=== PATIENT | male | born 1955 | race Caucasian/White ===

== ENCOUNTER 2017-03-15 21:55 | Inpatient (IN) | payer OTHER ==
[~2017-03-15] VITALS: Ht 177.8 cm; Wt 92.3 kg
[2017-03-15] MEDS ORDERED: NS 1,000 ML IV SCH (22:04)
[2017-03-15] MEDS: METOPROLOL 5 MG/5 ML VIAL IV SCH ×6 (22:23→23:06)
[2017-03-15 22:24] LABS: BASO % 0.5 % (0.0-1.0); EOS % 0.3 % (0.0-3.0); LARGE UNSTAINED CELL # 0.1 K/mm3 (0.0-0.4); LYMPH # 1.5 K/mm3 (1.5-4.5); LYMPH % 14.3 % (24.0-44.0); MEAN CORPUSCULAR HEMOGLOBIN 31.8 pg (27.0-33.0); MEAN CORPUSCULAR HGB CONC 31.7 g/dl (32.0-36.5); MEAN CORPUSCULAR VOLUME 100.3 fl (80.0-96.0); MONO # 0.6 K/mm3 (0.0-0.8); MONO % 6.2 % (0.0-5.0); NEUTROPHILS # 7.6 K/mm3 (1.8-7.7); NEUTROPHILS % 77.6 % (36.0-66.0); PLATELET COUNT, AUTOMATED 229 k/mm3 (150-450); RED CELL DISTRIBUTION WIDTH 13.4 % (11.5-14.5); WHITE BLOOD COUNT 9.8 K/mm3 (4.0-10.0)
[2017-03-15 22:31] LABS: INR 1.23
[2017-03-15 22:50] LABS: ALBUMIN 3.6 GM/DL (3.2-5.2); ALKALINE PHOSPHATASE 182 U/L (45-117); ALT/SGPT 84 U/L (12-78); ANION GAP 19 MEQ/L (8-16); AST/SGOT 109 U/L (15-37); BILIRUBIN,DIRECT 0.7 MG/DL (0.0-0.2); BILIRUBIN,TOTAL 1.8 MG/DL (0.2-1.0); BLOOD UREA NITROGEN 13 MG/DL (7-18); CALCIUM LEVEL 8.7 MG/DL (8.8-10.2); CARBON DIOXIDE LEVEL 17 MEQ/L (21-32); CHLORIDE LEVEL 106 MEQ/L (98-107); CREATININE FOR GFR 1.01 MG/DL (0.70-1.30); FREE T4 1.26 NG/DL (0.76-1.46); GLOMERULAR FILTRATION RATE > 60.0 (>49); GLUCOSE, FASTING 144 MG/DL (80-110); POTASSIUM SERUM 3.5 MEQ/L (3.5-5.1); SODIUM LEVEL 142 MEQ/L (136-145); TOTAL PROTEIN 7.2 GM/DL (6.4-8.2)
[2017-03-15] MEDS ORDERED: FUROSEMIDE 40 MG/4 ML VIAL (J1940) IV ONE (23:00)
[2017-03-15] MEDS ORDERED: POTASSIUM CHLORIDE 10 MEQ SR TABLET PO ONE (23:15)
[2017-03-15] MEDS ORDERED: ISOVUE-370 76% 100ML VIAL (Q9967) As Ordered ONE (23:17)
[2017-03-15 23:38] LABS: ABG BASE EXCESS -3.4 (-2.0-2.0); ABG HCO3 18.6 MEQ/L (22.0-26.0); ABG PARTIAL PRESSURE CO2 26.5 mmHg (35.0-45.0); ABG PARTIAL PRESSURE O2 69.7 mmHg (75.0-100.0); ABG STANDARD HCO3 21.6 MEQ/L (22.0-26.0); ABG TOTAL CO2 19.5 MEQ/L (23.0-31.0); ABG pH (ARTERIAL) 7.465 UNITS (7.350-7.450)
[2017-03-15] MEDS ORDERED: diltiaZEM 125 MG in NS 100 ML IV SCH (23:45)
[2017-03-16] VITALS (14 sets, daily range): BP systolic 111–151; BP diastolic 71–115
[2017-03-16] MEDS ORDERED: AMIODARONE HCL 150 MG in APPROPRIATE DILUENT 1 EA IV STA (00:05)
--- NOTE | 2017-03-16 00:10 | REPUSA ---
CLINICAL HISTORY: Dyspnea, exclude PE. TECHNIQUE: Multiple incremental axial, coronal and oblique images are obtained from the thoracic inle t to the upper abdomen. Intravenous contrast material was administered as per pulmonary embolism prot ocol. COMMENTS: There is excellent opacification of pulmonary arterial system without evidence for pulmonary embolism . Aorta is of normal caliber without evidence for dissection or aneurysm. Bilateral hilar adenopathy is suspected. There is no bulky mediastinal lymphadenopathy. The heart is enlarged. Pulmonary venous congestive ch anges present. Reflux of contrast into the IVC and hepatic veins compatible with right heart failure . There are large bilateral pleural effusions noted. The right right lower lobe, left lower lobe and right upper lobe consolidation is present compatible with pneumonia. Images of the upper abdomen demonstrate perihepatic ascites. The bony structures are free of lytic or blastic lesions. Multilevel degenerative changes are seen in volving the visualized thoracolumbar spine. Scattered calcifications are seen involving the aorta and major branches compatible with atherosclero sis. IMPRESSION: No evidence for pulmonary embolism. Pulmonary venous congestive changes present. Reflux of contrast into the IVC and hepatic veins mely tible with right heart failure. There are large bilateral pleural effusions noted. The right right lower lobe, left lower lobe and right upper lobe consolidations compatible with pneu monia. Images of the upper abdomen demonstrate perihepatic ascites. Thank you for your kind referral of this patient.
[2017-03-16] MEDS ORDERED: diltiaZEM 125 MG in NS 100 ML IV SCH ×2 (00:15→09:36)
[2017-03-16] MEDS ORDERED: cefTRIAXone SOD 2 GM in D5W MINI-BAG PLUS 50 ML IV ONE (00:15)
[2017-03-16] MEDS ORDERED: AZITHROMYCIN INJ 500 MG, VIAL MATE ADAPTER 1 EACH in D5W 250 ML IV ONE (00:15)
[2017-03-16] MEDS: diltiaZEM 125 MG in NS 100 ML IV SCH ×4 (01:00→16:20)
[2017-03-16] MEDS ORDERED: FUROSEMIDE 100 MG/10 ML VIAL (J1940) IV ONE (01:15)
[2017-03-16] MEDS ORDERED: DIGOXIN INJ 0.5 MG/2 ML AMP (J1160) IV STA (02:16)
--- NOTE | 2017-03-16 02:33 | HPE ---
DATE OF ADMISSION: 03/16/2017 PRIMARY CARE PHYSICIAN: None. HOSPITALIST ATTENDING: Bam Solares MD. CHIEF COMPLAINT: "I couldn't catch my breath." HISTORY OF PRESENTING ILLNESS: 61-year-old male with no past medical history, visiting the area from the [facility], presents to the emergency room with worsening chest congestion, dry cough, and shortness of breath for the past 1 week, worsened in the past 2 days noticed while walking around at [place] with some wheezing, without relief after using his 's inhaler. He denies palpitations, lightheadedness, nearsyncope or dizziness, vomiting, nausea, abdominal pain, bright red blood per rectum, melena, hematemesis, lightheadedness or dizziness. He has not noticed any weight changes, pnd, orthopnea, but with lower extremity edema. In the emergency room (ER), he was found to have atrial fibrillation with rapid ventricular rate of 154. Chest x-ray showing large bilateral effusions compatible with congestive heart failure. Hospitalist service was called for admission for atrial fibrillation with rapid ventricular rate (RVR), new onset of congestive heart failure. PAST MEDICAL HISTORY: None. PAST SURGICAL HISTORY: None. ALLERGIES: No known drug allergies. SOCIAL HISTORY: Drinks alcohol 3-4 times a day with liquor and beer. Last drink was yesterday. One caffeinated beverage a day with coffee. No cigarette use. FULL CODE. Health care proxy is his . Phone number is [phone]. FAMILY HISTORY: Mother with defibrillator, congestive heart failure, at the age of 81. Mother age 46 with aneurysm. REVIEW OF SYSTEMS: Per history of present illness (HPI), 12-point system otherwise negative. PHYSICAL EXAMINATION: Temperature 97.7, pulse 154, respiratory rate 16, blood pressure 151/98, 91% on 3 liters nasal cannula. Generally, patient is awake, alert, oriented times three, able to provide a history. Anicteric sclerae. No jaundice. Pupils are equally round and reactive to light and accommodation. Extraocular muscles are intact. Dry mucous membranes. Positive jugular venous distention. No thyromegaly or cervical lymphadenopathy. Lungs are diminished with rales bilaterally. Heart: S1, S2, irregularly irregular. No murmurs, rubs or gallops. Abdomen is soft, nontender, nondistended. Extremities: 1+ pitting edema. White count 9.8, hemoglobin 14, hematocrit 44, platelet count 229, 77% neutrophils. Sodium 142, potassium 3.5, chloride 106, bicarbonate 17, BUN 13, creatinine 1.01 , glucose 144, lactic acid 4.8, calcium 8.7, total bilirubin 1.8, direct bilirubin 0.7, AST 109, ALT 84, alkaline phosphatase 182, total CK 202, MB fraction 5.2, troponin 0.05, C-reactive protein 1.11, BNP of 753. CT of the chest shows no evidence of dissection, aneurysm. Bilateral hilar adenopathy is suspected. No bulky mediastinal lymphadenopathy. Heart is enlarged. Pulmonary venous congestive changes are present compatible with right heart failure. Large bilateral pleural effusions. Right lower lobe, left lower lobe and right upper lobe consolidation is present compatible with pneumonia. Atherosclerosis along the aorta and major branches. ASSESSMENT AND PLAN: This is a 61-year-old male with no prior medical history presents to the emergency room with 1-week complaint of congestion, cough worsened in the past 2 days with worsening shortness of breath, found to have atrial fibrillation with rapid ventricular response (RVR), new onset congestive heart failure, as well as right lower lobe consolidation on CT chest compatible with pneumonia. Patient will be admitted as an inpatient for two midnights and assigned to Dr. Bam Solares. CURRENT ISSUES: 1. Atrial fibrillation with rapid ventricular response, uncontrolled. Most likely brought on by an acute infectious process. Therefore, will treat underlying condition with intravenous (IV) antibiotics. He will be given intravenous diltiazem drip at 10 mg/h. No significant improvement and uncontrolled heart rate, will give amiodarone 150 mg times one, as well as digoxin, titrate to 15 mg diltiazem as a drip if no significant improvement. Thyroid-stimulating hormone (TSH) is within normal limits. For CVA prophylaxis, will start Xarelto, 2D echocardiogram in the morning. 2. Congestive heart failure, new onset, unknown ejection fraction. Most likely brought on by atrial fibrillation with rapid ventricular response and recent acute pneumonia in the right lower lobe. Patient will be given intravenous Lasix every 6 hours, strict intake and output (I and O), daily weights, fluid restriction, 2D echocardiogram to determine if this is systolic or diastolic dysfunction. Cycle cardiac markers every 6 hours to rule out acute coronary syndrome. Troponins are negative so far. EKG is unremarkable for acute ischemia aside from atrial fibrillation with RVR. Due to history of chronic alcohol use, concerning also for alcohol-related dilated cardiomyopathy. Await Echo report, and if ejection fraction <40%, will need cardiology consult, and workup for ischemia either with stress test or coronary angiogram in the near future. 3. Right lower lobe pneumonia, community acquired. Patient will be continued on ceftriaxone, azithromycin. Obtain blood cultures. Urine legionella, urine streptococcal antigen. Supportive care with nebulizer treatments with Xopenex. Sputum culture if cough becomes productive. 4. Alcohol Abuse. Patient drinks 4-5 drinks daily. Delirium tremens (DT) precautions. Serax as needed, multivitamin, thiamine and folate. 5. Deep venous thrombosis (DVT) prophylaxis. Currently on Eliquis, but will provide compression stockings. 6. CODE STATUS: FULL CODE. Patient will be assigned to Dr. Bam Solares at 7 a.m. [facility]
[2017-03-16] MEDS ORDERED: MOM 30ML SUSPENSION UDC PO PRN (05:15)
[2017-03-16] MEDS ORDERED: SENOKOT S TAB PO PRN (05:15)
[2017-03-16] MEDS ORDERED: ACETAMINOPHEN TAB 650MG DOSE (2X325MG) PO PRN (05:15)
[2017-03-16] MEDS ORDERED: LEVALBUTEROL 1.25 MG/0.5 ML CONCENTRATE NEB INH PRN (05:15)
[2017-03-16] MEDS: FUROSEMIDE 40 MG/4 ML VIAL (J1940) IV SCH ×4 (05:17→22:20)
[2017-03-16 05:33] LABS: BASO % 0.1 % (0.0-1.0); EOS % 0.2 % (0.0-3.0); LARGE UNSTAINED CELL # 0.1 K/mm3 (0.0-0.4); LARGE UNSTAINED CELL % 1.7 % (0.0-4.0); LYMPH # 0.8 K/mm3 (1.5-4.5); LYMPH % 12.1 % (24.0-44.0); MEAN CORPUSCULAR HEMOGLOBIN 32.5 pg (27.0-33.0); MEAN CORPUSCULAR HGB CONC 34.2 g/dl (32.0-36.5); MONO # 0.5 K/mm3 (0.0-0.8); MONO % 7.3 % (0.0-5.0); NEUTROPHILS # 5.2 K/mm3 (1.8-7.7); NEUTROPHILS % 78.6 % (36.0-66.0); PLATELET COUNT, AUTOMATED 199 k/mm3 (150-450); WHITE BLOOD COUNT 6.6 K/mm3 (4.0-10.0)
[2017-03-16 05:41] LABS: MEAN CORPUSCULAR VOLUME 94.9 fl (80.0-96.0)
[2017-03-16 06:13] LABS: ALBUMIN 3.6 GM/DL (3.2-5.2); ALBUMIN/GLOBULIN RATIO 1.03 (1.00-1.93); ALKALINE PHOSPHATASE 164 U/L (45-117); ALT/SGPT 161 U/L (12-78); ANION GAP 13 MEQ/L (8-16); AST/SGOT 395 U/L (15-37); BILIRUBIN,DIRECT 0.7 MG/DL (0.0-0.2); BILIRUBIN,TOTAL 1.7 MG/DL (0.2-1.0); BLOOD UREA NITROGEN 14 MG/DL (7-18); CALCIUM LEVEL 8.2 MG/DL (8.8-10.2); CARBON DIOXIDE LEVEL 24 MEQ/L (21-32); CHLORIDE LEVEL 104 MEQ/L (98-107); CHOLESTEROL LEVEL 160 MG/DL (<200); CREATININE FOR GFR 0.93 MG/DL (0.70-1.30); GLOMERULAR FILTRATION RATE > 60.0 (>49); GLUCOSE, FASTING 138 MG/DL (80-110); MAGNESIUM LEVEL 1.1 MG/DL (1.8-2.4); POTASSIUM SERUM 3.5 MEQ/L (3.5-5.1); SODIUM LEVEL 141 MEQ/L (136-145); TOTAL PROTEIN 7.1 GM/DL (6.4-8.2); TRIGLYCERIDES LEVEL 73 MG/DL (<150)
[2017-03-16] MEDS ORDERED: POTASSIUM CHLORIDE 10 MEQ SR TABLET PO ONE (07:15)
--- NOTE | 2017-03-16 07:42 | REP ---
Portable chest, single AP view, patient sitting: There is cardiomegaly and there are mild interstitial infiltrates. The martha, mediastinum, and bony thorax are unremarkable Signed by Blair Mota MD 03/16/2017 07:34 A
--- NOTE | 2017-03-16 07:43 | REP ---
Portable chest, 06:51 a.m., single AP view, patient sitting: Comparison is from 03/15 2017. Cardiomegaly persists. Interstitial infiltrates have a slightly improved. The martha, mediastinum, and bony thorax are unremarkable. On the CT performed on 03/15/2017. There are bilateral pleural effusions. These are not visible on this portable AP chest. Signed by Blair Mota MD 03/16/2017 07:35 A
[2017-03-16] MEDS: MAG SULF IV SCH ×3 (07:49→10:00)
[2017-03-16] MEDS: DILUENT IV SCH ×3 (07:49→10:00)
[2017-03-16] MEDS ORDERED: DIGOXIN INJ 0.5 MG/2 ML AMP (J1160) IV ONE (08:15)
[2017-03-16] MEDS: MULTIVITAMINS/MINERALS THERAP 1 TAB PO SCH (08:33)
[2017-03-16] MEDS: FOLIC ACID 1 MG TAB PO SCH (08:33)
[2017-03-16] MEDS: THIAMINE 100 MG TAB PO SCH (08:34)
--- NOTE | 2017-03-16 17:04 | REP ---
Right upper quadrant sonography: History: Elevated liver function studies. Findings: Scanning through the right upper quadrant of the abdomen demonstrates incidental note of a right pleural effusion. Scanning over the gallbladder demonstrates a markedly thickened gallbladder wall measuring up to 11 mm. No tenderness to scanning over the gallbladder was elicited. No pericholecystic fluid is seen. No stone is appreciated. Common bile duct is normal measuring 0.5 cm in greatest diameter. Pancreas is obscured by abdominal gas. No focal liver lesion is seen. There is no evidence of ascites or right renal abnormality. The right kidney measures 11.7 x 4.3 x 6.7 cm. Impression: Moderate gallbladder wall thickening. No stones or tenderness seen. Right pleural effusion noted. Otherwise negative. Signed by Donald Yao MD 03/17/2017 09:11 A
[2017-03-16] MEDS: RIVAROXABAN 20 MG TAB (XARELTO) PO SCH (18:00)
[2017-03-16] MEDS: OXAZEPAM 10 MG CAP PO PRN (20:03)
--- NOTE | 2017-03-16 20:36 | ECHO ---
DATE OF PROCEDURE: 03/16/2017 REFERRING PHYSICIAN: Dr. Thien Guzman HEIGHT: 178 cm WEIGHT: 100 kg DIMENSIONS: IVS: 1.3 LV: 4.6 LVPW: 1.3 LA: 4.4 Aorta: 4.0 FINDINGS: The study is of acceptable technical quality. The patient is in atrial fibrillation with rapid ventricular rate ranging from 100 beats per minute to 140 beats per minute. Left ventricle is of normal size and grossly normal contractility. I estimate ejection fraction (EF) around 60-65%. Mild left ventricular hypertrophy (LVH) is noted. Right ventricle does not appear dilated. Both atria are severely enlarged. Aortic valve is sclerotic, but seems to have preserved mobility. There are also degenerative abnormalities of mitral valve, but mobility of leaflets is preserved. Tricuspid valve appears normal. Pulmonic valve was not well seen. Trace pericardial effusion is noted. Inferior vena cava is dilated and has only mild collapse with respiration indicative of very high central venous pressure. Aortic root appears mildly dilated at 4.0 cm. Aortic arch was not well seen. Abdominal aorta also was not well seen. Doppler interrogation reveals no aortic stenosis or insufficiency. There is mild mitral and tricuspid insufficiency. Calculated pulmonary artery pressure is at least in mid to high 40s, which would correspond to moderate pulmonary hypertension. Evaluation of diastolic function is inconclusive due to underlying atrial fibrillation. CONCLUSIONS: 1. Study is of acceptable technical quality. 2. Normal LV size with mild LVH and preserved left ventricle (LV) systolic function. 3. Normal right ventricle (RV) size. 4. Severe biatrial enlargement. 5. Aortic sclerosis, but no significant stenosis. 6. Mild mitral and tricuspid insufficiency. 7. Very high central venous pressure and at least moderate pulmonary hypertension. 8. Trace pericardial effusion. 9. Mildly dilated aortic root (4.0 cm). COMMENT Subacute bacterial endocarditis (SBE) prophylaxis is not recommended. Severe biatrial enlargement indicates long duration of atrial fibrillation.
--- NOTE | 2017-03-16 20:43 | ECGEPIP ---
Stationary ECG Study [facility] Test Date: 2017-03-15 Pat Name: ALBERTO HOOD Department: Room: [place] [address] Gender: M Incident Handler: : 1955 Requested By: ALEX OWENS Order Number: [id number] Reading MD: Roopa De La Torre Measurements Intervals [place] Rate: 145 P: [place]: 0 QRS: 24 QRSD: 106 T: 0 QT: 314 QTc: 489 Interpretive Statements ATRIAL FIBRILLATION WITH RAPID VENTRICULAR RESPONSE WITH ABERRANT CONDUCTION OR VENTRICULAR PREMATURE COMPLEXES MODERATE T-WAVE ABNORMALITY, CONSIDER ISCHEMIA NO PRIOR Electronically Signed On 03-16-2017 20:43:02 EDT by Roopa De La Torre
--- NOTE | 2017-03-16 20:45 | ECGEPIP ---
Stationary ECG Study [facility] Test Date: 2017-03-16 Pat Name: ALBERTO HOOD Department: Room: [place] [address] Gender: M Broadcast Technician: CHERYLE : 1955 Requested By: ULICES Brown Order Number: [id number] Reading MD: Roopa De La Torre Measurements Intervals [place] Rate: 127 P: [place]: 0 QRS: -1 QRSD: 119 T: 215 QT: 317 QTc: 461 Interpretive Statements ATRIAL FIBRILLATION WITH RAPID VENTRICULAR RESPONSE WITH ABERRANT CONDUCTION OR VENTRICULAR PREMATURE COMPLEXES MODERATE INTRAVENTRICULAR CONDUCTION DELAY ST DEVIATION AND MODERATE T-WAVE ABNORMALITY, CONSIDER ANTEROLATERAL ISCHEMIA STT ABNORMALITIES ARE MORE APPARENT COMPARED TO 03/15/17 Electronically Signed On 03-16-2017 20:44:44 EDT by Roopa De La Torre
[2017-03-17] VITALS (7 sets, daily range): BP systolic 108–125; BP diastolic 64–87
[2017-03-17] MEDS: cefTRIAXone SOD 2 GM in D5W MINI-BAG PLUS 50 ML IV SCH ×2 (00:01→23:22)
[2017-03-17] MEDS: diltiaZEM 125 MG in NS 100 ML IV SCH ×3 (00:54→16:44)
[2017-03-17] MEDS: AZITHROMYCIN INJ 500 MG, VIAL MATE ADAPTER 1 EACH in D5W 250 ML IV SCH (00:54)
[2017-03-17] MEDS: FUROSEMIDE 40 MG/4 ML VIAL (J1940) IV SCH ×4 (04:14→23:25)
[2017-03-17] MEDS: OXAZEPAM 10 MG CAP PO PRN ×3 (04:58→19:30)
[2017-03-17 05:27] LABS: BASO % 0.3 % (0.0-1.0); EOS # 0.1 K/mm3 (0.0-0.50); EOS % 0.7 % (0.0-3.0); LARGE UNSTAINED CELL # 0.2 K/mm3 (0.0-0.4); LARGE UNSTAINED CELL % 2.1 % (0.0-4.0); LYMPH # 1.7 K/mm3 (1.5-4.5); LYMPH % 18.3 % (24.0-44.0); MEAN CORPUSCULAR HEMOGLOBIN 32.2 pg (27.0-33.0); MEAN CORPUSCULAR HGB CONC 32.9 g/dl (32.0-36.5); MEAN CORPUSCULAR VOLUME 97.9 fl (80.0-96.0); MONO # 0.7 K/mm3 (0.0-0.8); MONO % 7.9 % (0.0-5.0); NEUTROPHILS # 5.9 K/mm3 (1.8-7.7); NEUTROPHILS % 70.6 % (36.0-66.0); PLATELET COUNT, AUTOMATED 189 k/mm3 (150-450); RED CELL DISTRIBUTION WIDTH 13.2 % (11.5-14.5); WHITE BLOOD COUNT 8.3 K/mm3 (4.0-10.0)
[2017-03-17 06:00] LABS: ALBUMIN/GLOBULIN RATIO 0.86 (1.00-1.93); ALKALINE PHOSPHATASE 127 U/L (45-117); ALT/SGPT 119 U/L (12-78); AST/SGOT 185 U/L (15-37); BILIRUBIN,DIRECT 0.5 MG/DL (0.0-0.2); BILIRUBIN,TOTAL 1.3 MG/DL (0.2-1.0); BLOOD UREA NITROGEN 15 MG/DL (7-18); CALCIUM LEVEL 7.6 MG/DL (8.8-10.2); CARBON DIOXIDE LEVEL 30 MEQ/L (21-32); CHLORIDE LEVEL 99 MEQ/L (98-107); CREATININE FOR GFR 0.83 MG/DL (0.70-1.30); DIGOXIN LEVEL 0.6 NG/ML (0.5-2.0); GLOMERULAR FILTRATION RATE > 60.0 (>49); GLUCOSE, FASTING 93 MG/DL (80-110); MAGNESIUM LEVEL 1.5 MG/DL (1.8-2.4); TOTAL PROTEIN 6.5 GM/DL (6.4-8.2)
[2017-03-17 06:11] LABS: ANION GAP 9 MEQ/L (8-16); SODIUM LEVEL 138 MEQ/L (136-145)
[2017-03-17 06:12] LABS: POTASSIUM SERUM 2.8 MEQ/L (3.5-5.1)
[2017-03-17] MEDS ORDERED: POTASSIUM CHLORIDE 10 MEQ SR TABLET PO ONE ×2 (06:15→09:00)
[2017-03-17] MEDS: KCL 10MEQ IN 100ML SWI (KRUN) 10 MEQ in APPROPRIATE DILUENT 1 EA IV SCH ×4 (09:07→10:28)
[2017-03-17] MEDS: THIAMINE 100 MG TAB PO SCH (09:08)
[2017-03-17] MEDS: MULTIVITAMINS/MINERALS THERAP 1 TAB PO SCH (09:08)
[2017-03-17] MEDS: FOLIC ACID 1 MG TAB PO SCH (09:08)
[2017-03-17] MEDS: MAG SULF 1GM/100ML (MAG RUN) 1 GM in APPROPRIATE DILUENT 1 EA IV SCH ×2 (12:03→13:14)
[2017-03-17 14:48] LABS: FOLATE 9.1 NG/ML (>5.4)
[2017-03-17 15:18] LABS: PERCENT SATURATION 12.3 % (19.7-50.0)
[2017-03-17] MEDS: RIVAROXABAN 20 MG TAB (XARELTO) PO SCH (17:57)
[2017-03-17] MEDS ORDERED: POLYVINYL ALCOHOL OPHTH SOLN 15 ML(LIQUITEARS) OU PRN (18:45)
[2017-03-17] MEDS ORDERED: OXAZEPAM 10 MG CAP PO ONE (22:45)
--- NOTE | 2017-03-17 23:04 | IPN ---
DATE: 03/17/2017 SUBJECTIVE: Patient is seen and examined in the room today. Patient denies any palpitations, even though his heart rate is running around 140 during encounter. Patient stated his breathing is improving. His symptoms are better compared to the day of admission. No overnight events reported overnight. OBJECTIVE: VITAL SIGNS: Temperature is 97.5, pulse is 148, respiration rate is 22, blood pressure is 113/66, pulse oximetry 92% with 2 liters nasal cannula. GENERAL: No sign of acute distress, sitting comfortably in chair. No overnight events reported. HEENT: Normocephalic, atraumatic. Extraocular motor grossly intact. CARDIOVASCULAR: Irregularly irregular. Heart rate is around 140 at the time of my encounter. RESPIRATORY: Decreased breath sounds. No wheezes or rhonchi. ABDOMEN: Soft, nontender, nondistended. Bowel sounds present. No rebound. No guarding. EXTREMITIES: positive for edema. LABORATORY DATA: WBC 8.3, hemoglobin 13.7, hematocrit 41.5, platelet count is 189. Sodium is 138, potassium 2.8, chloride 99, carbon dioxide is 30, BUN 15, creatinine 0.83, GFR greater than 60, fasting glucose 93, calcium 7.6, magnesium is 1.5. Total bilirubin is 1.3, direct bilirubin is 0.5, AST is 185, ALT is 119, alkaline phosphatase is 127, total protein 6.5, albumin 3. ASSESSMENT AND PLAN: 1. New-onset atrial fibrillation with rapid ventricular response (RVR). Patient is started on Cardizem drip. The dosage is being adjusted. Patient is also taking Xarelto. Currently patient has active pneumonia. That may be possible cause for patient's new-onset atrial fibrillation. Consider digoxin/amiodarone if Cardizem drip is not able to control patient's symptoms. Will followup with 2D echo. 2. New-onset congestive heart failure. Will followup with cardiac echo. Currently patient is receiving Lasix diuresis, Lasix 40 mg intravenous (IV) every 6 hours. Will monitor input and output. Continue holding parameters for the Lasix regimen. 3. Community-acquired right lower lobe pneumonia. Patient on azithromycin and Rocephin. Sputum cultures were ordered since admission; however, patient is not able to provide samples. 4. Alcohol abuse on a daily basis. Patient drinks four to five alcoholic beverages on a daily basis. Patient is on multivitamin, thiamine, folic acid. Patient also has Serax 10 mg by mouth every 6 hours as needed. 5. Deep vein thrombosis (DVT) prophylaxis. Continue Xarelto. MTDD
[2017-03-18] VITALS (7 sets, daily range): BP systolic 104–138; BP diastolic 73–98
[2017-03-18] MEDS: OXAZEPAM 10 MG CAP PO SCH ×5 (00:22→23:56)
[2017-03-18] MEDS: AZITHROMYCIN INJ 500 MG, VIAL MATE ADAPTER 1 EACH in D5W 250 ML IV SCH (00:40)
[2017-03-18] MEDS: diltiaZEM 125 MG in NS 100 ML IV SCH (01:18)
[2017-03-18 05:34] LABS: BASO % 0.4 % (0.0-1.0); EOS # 0.1 K/mm3 (0.0-0.50); EOS % 2.1 % (0.0-3.0); LARGE UNSTAINED CELL # 0.2 K/mm3 (0.0-0.4); LYMPH # 1.9 K/mm3 (1.5-4.5); LYMPH % 24.1 % (24.0-44.0); MEAN CORPUSCULAR HEMOGLOBIN 32.7 pg (27.0-33.0); MEAN CORPUSCULAR HGB CONC 34.4 g/dl (32.0-36.5); MEAN CORPUSCULAR VOLUME 95.2 fl (80.0-96.0); MONO # 0.6 K/mm3 (0.0-0.8); MONO % 9.4 % (0.0-5.0); NEUTROPHILS # 4.2 K/mm3 (1.8-7.7); PLATELET COUNT, AUTOMATED 233 k/mm3 (150-450); RED CELL DISTRIBUTION WIDTH 13.3 % (11.5-14.5); WHITE BLOOD COUNT 6.9 K/mm3 (4.0-10.0)
[2017-03-18 05:50] LABS: ALBUMIN 3.1 GM/DL (3.2-5.2); ALBUMIN/GLOBULIN RATIO 0.79 (1.00-1.93); ALKALINE PHOSPHATASE 131 U/L (45-117); ALT/SGPT 125 U/L (12-78); ANION GAP 9 MEQ/L (8-16); AST/SGOT 148 U/L (15-37); BILIRUBIN,DIRECT 0.4 MG/DL (0.0-0.2); BLOOD UREA NITROGEN 19 MG/DL (7-18); CALCIUM LEVEL 8.1 MG/DL (8.8-10.2); CARBON DIOXIDE LEVEL 31 MEQ/L (21-32); CHLORIDE LEVEL 101 MEQ/L (98-107); CREATININE FOR GFR 0.89 MG/DL (0.70-1.30); GLOMERULAR FILTRATION RATE > 60.0 (>49); GLUCOSE, FASTING 93 MG/DL (80-110); SODIUM LEVEL 141 MEQ/L (136-145)
[2017-03-18] MEDS: FUROSEMIDE 40 MG/4 ML VIAL (J1940) IV SCH ×2 (05:57→12:03)
[2017-03-18] MEDS ORDERED: POTASSIUM CHLORIDE 10 MEQ SR TABLET PO ONE (08:00)
[2017-03-18 08:20] LABS: MAGNESIUM LEVEL 1.7 MG/DL (1.8-2.4)
[2017-03-18] MEDS: THIAMINE 100 MG TAB PO SCH (08:38)
[2017-03-18] MEDS: FOLIC ACID 1 MG TAB PO SCH (08:38)
[2017-03-18] MEDS: MULTIVITAMINS/MINERALS THERAP 1 TAB PO SCH (08:39)
[2017-03-18] MEDS: KCL 10MEQ IN 100ML SWI (KRUN) 10 MEQ in APPROPRIATE DILUENT 1 EA IV SCH ×6 (08:39→11:09)
--- NOTE | 2017-03-18 16:17 | IPN ---
DATE: 03/18/2017 SUBJECTIVE: Patient seen and examined in the room today. Patient denies any complaint of palpitations, and patient has a heart rate around 140 on the telemetry. Patient stated his bilateral lower extremity swelling has been improving. States his respiratory symptoms have shown some improvement. OBJECTIVE: VITAL SIGNS: Temperature is 97.3, pulse is 139, respiration rate is 20, blood pressure is 119/83, pulse oximetry 95% in room air. GENERAL: No sign of acute distress, alert and oriented times three. HEENT: Normocephalic, atraumatic. Extraocular motor grossly intact. CARDIOVASCULAR: Irregularly irregular, positive S1, S2. LUNGS: Decreased breath sounds bilaterally. No wheezes or rhonchi. ABDOMEN: Soft, nontender, nondistended. Bowel sounds present. No rebound. No guarding. EXTREMITIES: Positive pedal edema bilaterally, mainly around the ankles. LABORATORY DATA: WBC 6.9, hemoglobin is 14, hematocrit is 40.8, platelet count is 233. Sodium is 141, potassium 3, chloride is 101, carbon dioxide 31, BUN 19, creatinine 0.89, GFR greater than 60, fasting glucose is 93, calcium is 8.1, magnesium is 1.7. Total bilirubin is 1, direct bilirubin is 0.4, AST 148, ALT is 125, alkaline phosphatase 131. BNP is 259. Total protein is 7, albumin 3.1. ASSESSMENT AND PLAN: 1. New-onset atrial fibrillation with rapid ventricular response (RVR). Patient was on Cardizem drip. Dosage reviewed. We will convert to oral dosage. Patient is also taking Xarelto. Patient is being treated for active pneumonia. It could be possible cause for patient's atrial fibrillation. A 2D echo was performed. Patient has intact ejection fraction but could not evaluate diastolic function due to active atrial fibrillation. 2. Congestive heart failure with preserved ejection fraction (EF). Patient has been receiving Lasix diuresis. His breathing is improving, and lower extremity swelling is also improving. Now we will switch to the oral Lasix formulation with holding parameters. 3. Community-acquired right lower lobe pneumonia. Patient has azithromycin and Rocephin. Sputum culture was ordered since admission; however, patient cannot provide any sputum. 4. Alcohol abuse. Patient used to drink four to five alcoholic beverages on a daily basis. Patient is on multivitamin, thiamine, folic acid. Patient is on Serax every 6 hours as needed. 5. Deep vein thrombosis (DVT) prophylaxis, on Xarelto.
[2017-03-18] MEDS ORDERED: FUROSEMIDE 40 MG TAB PO SCH (17:00)
[2017-03-18] MEDS: RIVAROXABAN 20 MG TAB (XARELTO) PO SCH (17:42)
[2017-03-18] MEDS: cefTRIAXone SOD 2 GM in D5W MINI-BAG PLUS 50 ML IV SCH (23:56)
[2017-03-19] VITALS (8 sets, daily range): BP systolic 115–129; BP diastolic 65–93
[2017-03-19 00:06] LABS: ORGANISM ID Not indicated. (.); SPECIMEN SOURCE Urine (.)
[2017-03-19] MEDS: AZITHROMYCIN INJ 500 MG, VIAL MATE ADAPTER 1 EACH in D5W 250 ML IV SCH (00:42)
[2017-03-19 05:15] LABS: BASO # 0.1 K/mm3 (0.0-0.2); BASO % 0.9 % (0.0-1.0); EOS # 0.2 K/mm3 (0.0-0.50); EOS % 3.7 % (0.0-3.0); LARGE UNSTAINED CELL # 0.3 K/mm3 (0.0-0.4); LARGE UNSTAINED CELL % 4.6 % (0.0-4.0); LYMPH % 26.4 % (24.0-44.0); MEAN CORPUSCULAR HEMOGLOBIN 32.6 pg (27.0-33.0); MEAN CORPUSCULAR HGB CONC 33.9 g/dl (32.0-36.5); MEAN CORPUSCULAR VOLUME 96.1 fl (80.0-96.0); MONO # 0.7 K/mm3 (0.0-0.8); MONO % 11.2 % (0.0-5.0); NEUTROPHILS # 3.5 K/mm3 (1.8-7.7); NEUTROPHILS % 53.2 % (36.0-66.0); PLATELET COUNT, AUTOMATED 234 k/mm3 (150-450); RED CELL DISTRIBUTION WIDTH 13.2 % (11.5-14.5); WHITE BLOOD COUNT 6.6 K/mm3 (4.0-10.0)
[2017-03-19 05:40] LABS: ALBUMIN/GLOBULIN RATIO 0.79 (1.00-1.93); ALKALINE PHOSPHATASE 121 U/L (45-117); ALT/SGPT 122 U/L (12-78); ANION GAP 9 MEQ/L (8-16); AST/SGOT 127 U/L (15-37); BILIRUBIN,DIRECT 0.3 MG/DL (0.0-0.2); BILIRUBIN,TOTAL 0.9 MG/DL (0.2-1.0); BLOOD UREA NITROGEN 19 MG/DL (7-18); CALCIUM LEVEL 8.8 MG/DL (8.8-10.2); CARBON DIOXIDE LEVEL 31 MEQ/L (21-32); CHLORIDE LEVEL 103 MEQ/L (98-107); CREATININE FOR GFR 0.89 MG/DL (0.70-1.30); GLOMERULAR FILTRATION RATE > 60.0 (>49); GLUCOSE, FASTING 88 MG/DL (80-110); MAGNESIUM LEVEL 1.7 MG/DL (1.8-2.4); POTASSIUM SERUM 3.2 MEQ/L (3.5-5.1); SODIUM LEVEL 143 MEQ/L (136-145); TOTAL PROTEIN 6.8 GM/DL (6.4-8.2)
[2017-03-19] MEDS: OXAZEPAM 10 MG CAP PO SCH ×3 (06:26→17:42)
[2017-03-19] MEDS ORDERED: POTASSIUM CHLORIDE 10 MEQ SR TABLET PO ONE (08:30)
[2017-03-19] MEDS: THIAMINE 100 MG TAB PO SCH (09:33)
[2017-03-19] MEDS: FOLIC ACID 1 MG TAB PO SCH (09:33)
[2017-03-19] MEDS: MULTIVITAMINS/MINERALS THERAP 1 TAB PO SCH (09:33)
[2017-03-19] MEDS: FUROSEMIDE 40 MG TAB PO SCH (09:33)
[2017-03-19] MEDS: KCL 10MEQ IN 100ML SWI (KRUN) 10 MEQ in APPROPRIATE DILUENT 1 EA IV SCH ×4 (09:35→10:39)
[2017-03-19] MEDS: RIVAROXABAN 20 MG TAB (XARELTO) PO SCH (17:41)
[2017-03-19] MEDS ORDERED: AZITHROMYCIN 250 MG TAB PO SCH (21:00)
--- NOTE | 2017-03-19 22:59 | IPN ---
DATE: 03/19/2017 SUBJECTIVE: The patient is seen and examined in the room today. The patient denies any palpitations. The patient does not require any oxygen. Breathing comfortably on room air. Still has tachycardia with a rate around 120-140. OBJECTIVE: VITAL SIGNS: Temperature is 97.4, pulse is 120, respirations 18, blood pressure 127/92, pulse oximetry 92% on room air. GENERAL: No sign of acute distress. Alert and oriented times three. HEENT: Normocephalic, atraumatic. Extraocular motor grossly intact. CARDIOVASCULAR: Irregularly irregular, tachycardic. Positive S1, S2. LUNGS: Decreased breath sounds bilaterally. No wheeze or rhonchi. ABDOMEN: Soft, nontender, nondistended. Bowel sounds present. No rebound, no guarding. EXTREMITIES: Positive pitting edema mainly around the ankles bilaterally but is improved compared to yesterday. LABORATORY DATA: WBC 6.6, hemoglobin 14.3, hematocrit 42.3, platelet count 234. Sodium is 143, potassium 3.2, chloride 103, carbon dioxide 31, BUN 19, creatinine 0.89, GFR greater than 60, fasting glucose is 88, calcium 8.8, magnesium 1.7. Total bilirubin is 0.9, direct bilirubin 0.3, AST 127, ALT 122, alkaline phosphatase 121. Total protein 6.8, albumin three. ASSESSMENT AND PLAN: 1. Atrial fibrillation with rapid ventricular rate (RVR). The patient was on Cardizem drip and Cardizem was switched to oral formulation. Currently the patient is still tachycardic. We will continue to increase the Cardizem dosage. The patient continues on Xarelto. Currently the patient is being treated for active pneumonia which could be the trigger for the patient's new-onset atrial fibrillation. 2-D echocardiogram performed showed normal ejection fraction, but could not evaluate diastolic function due to atrial fibrillation. Congestive heart failure with preserved ejection fraction (EF). The patient has been receiving intravenous (IV) Lasix. Swelling has been improving. Breathing also improving. The patient is on oral Lasix formulation at this moment. 2. Community-acquired right lower lobe pneumonia. The patient is on azithromycin and Rocephin. 3. Alcohol abuse. Used to drink 4-5 alcoholic beverages on a daily basis. The patient on multivitamin, thiamine, and folic acid. On Serax every six hours as needed. 4. Deep venous thrombosis (DVT) prophylaxis with Xarelto. MTDD
[2017-03-20] MEDS: OXAZEPAM 10 MG CAP PO SCH ×2 (00:13→05:10)
[2017-03-20] MEDS: cefTRIAXone SOD 2 GM in D5W MINI-BAG PLUS 50 ML IV SCH (00:13)
[2017-03-20 04:00] VITALS: BP 159/97
[2017-03-20 05:09] VITALS: BP 120/80
[2017-03-20 05:39] LABS: BASO # 0.1 K/mm3 (0.0-0.2); BASO % 0.9 % (0.0-1.0); EOS # 0.3 K/mm3 (0.0-0.50); LARGE UNSTAINED CELL # 0.3 K/mm3 (0.0-0.4); LARGE UNSTAINED CELL % 4.4 % (0.0-4.0); LYMPH # 2.1 K/mm3 (1.5-4.5); LYMPH % 25.2 % (24.0-44.0); MEAN CORPUSCULAR HEMOGLOBIN 32.4 pg (27.0-33.0); MEAN CORPUSCULAR HGB CONC 33.7 g/dl (32.0-36.5); MEAN CORPUSCULAR VOLUME 96.2 fl (80.0-96.0); MONO % 13.7 % (0.0-5.0); NEUTROPHILS # 3.6 K/mm3 (1.8-7.7); NEUTROPHILS % 51.8 % (36.0-66.0); PLATELET COUNT, AUTOMATED 262 k/mm3 (150-450); RED CELL DISTRIBUTION WIDTH 13.1 % (11.5-14.5)
[2017-03-20 05:54] LABS: ALBUMIN 3.2 GM/DL (3.2-5.2); ALBUMIN/GLOBULIN RATIO 0.82 (1.00-1.93); ALKALINE PHOSPHATASE 118 U/L (45-117); ALT/SGPT 117 U/L (12-78); ANION GAP 9 MEQ/L (8-16); AST/SGOT 101 U/L (15-37); BILIRUBIN,DIRECT 0.3 MG/DL (0.0-0.2); BILIRUBIN,TOTAL 0.8 MG/DL (0.2-1.0); BLOOD UREA NITROGEN 20 MG/DL (7-18); CALCIUM LEVEL 8.5 MG/DL (8.8-10.2); CARBON DIOXIDE LEVEL 28 MEQ/L (21-32); CHLORIDE LEVEL 107 MEQ/L (98-107); CREATININE FOR GFR 0.95 MG/DL (0.70-1.30); GLOMERULAR FILTRATION RATE > 60.0 (>49); GLUCOSE, FASTING 108 MG/DL (80-110); MAGNESIUM LEVEL 1.8 MG/DL (1.8-2.4); POTASSIUM SERUM 3.3 MEQ/L (3.5-5.1); SODIUM LEVEL 144 MEQ/L (136-145); TOTAL PROTEIN 7.1 GM/DL (6.4-8.2)
[2017-03-20] MEDS ORDERED: POTASSIUM CHLORIDE 10 MEQ SR TABLET PO ONE (07:30)
[2017-03-20 08:00] VITALS: BP 137/85
[2017-03-20] MEDS: FOLIC ACID 1 MG TAB PO SCH (08:53)
[2017-03-20] MEDS: MULTIVITAMINS/MINERALS THERAP 1 TAB PO SCH (08:54)
[2017-03-20] MEDS: THIAMINE 100 MG TAB PO SCH (08:54)
[2017-03-20] MEDS: FUROSEMIDE 40 MG TAB PO SCH (08:54)
[2017-03-20] MEDS ORDERED: DILT60TA PO (09:13)
[2017-03-20] MEDS ORDERED: ELIQ5TAB PO (09:13)
[2017-03-20] MEDS ORDERED: LASI20TA PO (09:13)
[2017-03-20] MEDS ORDERED: K-TA10TA2 PO (09:13)
[2017-03-20] MEDS ORDERED: LEVA750T7 PO (09:13)
[2017-03-20] MEDS ORDERED: THIA100TA PO (09:13)
[2017-03-20] MEDS ORDERED: VITMTA PO (09:13)
[2017-03-20] MEDS ORDERED: FOLI1TAB4 PO (09:13)
[2017-03-20] MEDS ORDERED: SLF 3 ML SYR IV PRN (09:30)
[2017-03-20] MEDS ORDERED: SLF 3 ML SYR IV SCH (14:00)
--- NOTE | 2017-03-20 19:28 | DSES ---
DATE OF ADMISSION: 03/16/2017 DATE OF DISCHARGE: 03/20/2017 PRIMARY CARE PROVIDER: None. PRIMARY RESIDENCY: Near [place], [place]. CONSULTANTS: None. PROCEDURES: None. COMPLICATIONS: None. DISCHARGE DIAGNOSES: 1. New onset atrial fibrillation with rapid ventricular response (RVR). 2. Community-acquired pneumonia. 3. Alcohol abuse. 4. Elevated liver functions secondary to chronic alcohol abuse. 5. Hypokalemia secondary to Lasix diuresis requiring supplements. 6. Moderate pulmonary hypertension. HOSPITALIZATION COURSE: Patient is a 61-year-old male who presented to [facility] on 03/16/2017, with severe difficulty breathing. Diagnostic workup was performed and patient was found to have atrial fibrillation with RVR and new onset congestive heart failure type symptoms. Patient was started on IV diltiazem drip and patient was transferred to intensive care unit (ICU) for a higher level of care and close cardiac monitoring. An urgent cardiac echo was also ordered. Patient started diuresis with IV Lasix. During the diagnostic workup, patient was also found to have right lower lobe infiltrate and patient was started on empiric antibiotics with Rocephin and azithromycin. In the ICU, patient's Cardizem drip is being titrated up to achieve better rate control and patient was started on anticoagulation therapy. Later, patient started to have good urinary output and with antibiotic treatment with better heart rate control, clinically patient's symptoms started to improve and initially patient was able to wean off the oxygen. Then, once the patient's heart rate was getting better controlled, the Cardizem was dropped from IV drip to the oral regimen and with time the Cardizem regimen is also titrated up to achieve desired heart rate control. On 03/20/2017, patient is medically optimized for discharge and patient is discharged home with Cardizem and Eliquis. Patient is recommended to finish course of antibiotic treatment for his right lower lobe pneumonia. Patient is also recommended to establish with a primary care provider and cardiology near [facility] in the next 1-2 weeks. Strong recommendation is given to the patient to quit drinking alcohol. OBJECTIVE: VITAL SIGNS: Temperature 97.5, pulse 87, respirations 20, blood pressure 137/85, pulse oximetry 95% in room air. LABORATORY DATA: WBC 7, hemoglobin 14.4, hematocrit 42.8, platelet count 262. Sodium 144, potassium 3.3, chloride 107, carbon dioxide 28, BUN 20, creatinine 0.95, GFR greater than 60, fasting glucose 108, calcium 8.5, magnesium 1.8, total bilirubin 0.8, direct bilirubin 0.3, AST 101, ALT 117, alkaline phosphatase 118, albumin 3.2. PT is 15.7, INR is 1.23. D-dimer is less than 270. YULIYA is negative. Hepatitis panel is negative. Urine Legionella antigen level is negative. Streptococcus pneumoniae antigen level in the urine is negative. Microbiology: Blood cultures negative after 72 hours. Chest x-ray on 03/15/2017, showed cardiomegaly and mild interstitial infiltrate. CT angiogram of the chest on 03/15/2017, showed no evidence of pulmonary embolism. Pulmonary venous congestion changes. Findings suggestive of right heart failure. Large bilateral pleural effusions. Right lower lobe and left lower lobe and right upper lobe consolidation compatible with pneumonia. Perihepatic ascites. Liver ultrasound on 03/16/2017, showed moderate gallbladder wall thickening. No stones or tenderness. Common bile duct is normal. No stone is appreciated. No pericholecystic fluid is seen. Echocardiogram on 03/16/2017, shows normal systolic function. Severe biatrial enlargement. Aortic sclerosis, but no significant stenosis. Mild mitral and tricuspid insufficiency. Very high central venous pressure and moderate pulmonary hypertension. DISCHARGE MEDICATIONS: - Eliquis 5 mg by mouth twice a day - diltiazem 120 mg by mouth every 8 hours - folic acid 1 mg by mouth daily - Lasix 20 mg by mouth daily, 7 days supply - Levaquin 750 mg by mouth daily for 2 days - multivitamin one tablet by mouth daily - potassium chloride 20 mEq by mouth daily for 7 days - thiamine 100 mg by mouth daily DISCHARGE INSTRUCTIONS: Discontinue lines. Discharge home. Activity as tolerated. Low salt diet as tolerated. Patient should follow 1.8 liters fluid restriction. Patient is instructed to followup with Dr. Beavers, the primary care doctor on 03/30/2017. Patient is also recommended to followup with the cardiology doctor, Dr. Suarez on 03/31/2017. Patient is currently given Cardizem for rate control and patient is given Lasix for his fluid overload. Those medications should be reviewed and adjusted by the medical providers. Patient is recommended to finish the course of antibiotics for his pneumonia. DISCHARGE TIME: Greater than 30 minutes. DISCHARGE CONDITION: Stable.
== END 2017-03-20 11:00 | disposition home or self-care (01) | DRG 201 ==
LOC: M ED 21:55 → M ED INP 03-16 00:07 → M ICU 03-16 01:07 → M PCU 03-19 15:30
PROVIDERS: ADMIT General Practice; ATTEND Internal Medicine
DX: I48.91 Unspecified atrial fibrillation (principal); J18.9 Pneumonia, unspecified organism; I27.2 Other secondary pulmonary hypertension; I50.9 Heart failure, unspecified; F10.10 Alcohol abuse, uncomplicated; R94.5 Abnormal results of liver function studies; Z79.01 Long term (current) use of anticoagulants; Z79.899 Other long term (current) drug therapy; Z82.49 Family history of ischemic heart disease and other diseases of the circulatory system; Z83.2 Family history of diseases of the blood and blood-forming organs and certain disorders involving the immune mechanism